=== PATIENT | male | born 1965 | race Two or more races ===

== ENCOUNTER 2025-06-09 10:45 | Outpatient (CLI) | payer SELFPAY ==
[2025-06-09] MEDS ORDERED: ALBUTEROL SULF 2.5 MG/0.5ML(0.5%) NEB SOLN ONE (10:56)
== END 2025-06-09 17:00 | disposition home or self-care (01) ==
LOC: RT 10:45
PROVIDERS: ATTEND Internal Medicine Pulmonary Disease
DX: R05.9 Cough, unspecified (principal)
CPT/HCPCS: 94060; 94727; 94729